=== PATIENT | male | born 1945 | race Caucasian/White ===

== ENCOUNTER 2019-02-01 06:22 | Inpatient (IN) ==
[2019-02-01] MEDS ORDERED: CeFAZolin Syr 2,000MG/20 ML 2,000 MG/20 ML SYRINGE IVPB ONE (06:40)
[2019-02-01] MEDS ORDERED: Ringers Solution, Lactated 1,000 ML IVC SCH ×2 (06:45→11:14)
--- NOTE | 2019-02-01 06:48 | History & Physical Report ---
Date of Encounter: 02/01/19 Time of Encounter: 06:48 24 Hour HP Update - Instructions Instructions: If the History and Physical is less than 30 days old and was completed prior to A.M. admission and or procedure and has NOT been updated on calendar day of procedure please complete this update prior to performing procedure. - Update Patient reports changes in Medical Condition: No Changes in examination, assessment, or condition: No Changes in Medication: No Preop tests/diagnostics Reviewed: Yes Surgery Remains Indicated: Yes Consent for Planned Operative Procedure(s) Verified: Yes - Pre-Operative Checklist Preoperative Checklist Indicated: No Prophylactic Antibiotic Ordered: Yes Is VTE Prophylaxis Indicated?: Yes
[2019-02-01] MEDS ORDERED: Ethanol\\Acetic Acid\\Na Ace\\Ben 1,000 ML IRRIG.SOLN IR ONE (07:23)
[2019-02-01] MEDS ORDERED: *HR* Midazolam HCl 2 MG/2 ML VIAL ONE (07:37)
[2019-02-01] MEDS ORDERED: *HR* Propofol 200 MG/20 ML VIAL IVP ONE (07:37)
[2019-02-01] MEDS ORDERED: *HR* FentaNYL (PF) 100 MCG/2 ML VIAL ONE (07:37)
[2019-02-01] MEDS ORDERED: Lidocaine -MPF 2% 2 ML VIAL ONE (07:39)
[2019-02-01] MEDS ORDERED: Ropivacaine/PF 0.5% 30 ML VIAL ONE (07:44)
[2019-02-01] MEDS ORDERED: Acetaminophen IV 1,000 MG/100 ML INFUS..BTL ONE (07:44)
--- NOTE | 2019-02-01 08:09 | Anesthesia Evaluation PreOp ---
Date of Encounter: 02/01/19 Time of Encounter: 08:07 - Past History Planned Operation: Right Total Shoulder Cardiac History: HTN, Hyperlipidemia Pulmonary History: Former smoker (quit 2006), Snore, FUENTES Dx (does not use CPAP) WOUND CARE SPECIALIST History: TIA Other Medical History: Diabetes Type II, GERD Anesthesia History: No Prior Anesthetic Complications, Past Anesthesia Alcohol Use: occasionally Drug use: none Medications and Allergies Ascorbic Acid [Vitamin C] 500 mg PO DAILY 02/01/19 [History] Aspirin Enteric Coated [Aspirin EC] 81 mg PO DAILY 02/01/19 [History] Cetirizine HCl [Zyrtec] 10 mg PO DAILY 02/01/19 [History] Ergocalciferol (VITAMIN D2) [Vitamin D2] 2,000 unit PO DAILY 02/01/19 [History] Losartan Potassium 25 mg PO DAILY 02/01/19 [History] Naproxen [Naprosyn] 500 mg PO BID PRN 02/01/19 [History] Omeprazole [PriLOSEC] 20 mg PO DAILY 02/01/19 [History] Pravastatin Sodium [Pravachol] 20 mg PO HS 02/01/19 [History] Pregabalin [Lyrica] 75 mg PO BID 02/01/19 [History] Allergy/AdvReac Type Severity Reaction Status Date / Time No Known Allergies Allergy Verified 02/01/19 07:15 - Meds/Allergy Pre-op Review Medications Reviewed: Yes Allergies Reviewed: Yes Beta Blockers on Current Med List: No Anesthesia Results - Labs Laboratory Tests 01/27/19 01/27/19 01/27/19 14:20 14:20 14:20 WBC 9.3 Hgb 15.5 Hct 48.9 Plt Count 297 PT 11.1 INR 1.0 APTT 32.5 Sodium 139 Potassium 4.0 BUN 20 Creatinine 1.20 - Imaging EKG: report reviewed (12/30/2017 SINUS RHYTHM RIGHT BUNDLE BRANCH BLOCK) Additional studies: 01/17/2016 Echo Impressions: LVEF 60%. Normal left ventricular size and systolic function. There is evidence of moderate diastolic dysfunction of the left ventricle. Dilated RV with normal function. No significant valvular dysfunction. Estimated RVSP was 24 mmHg. No pulmonary hypertension. The IVC is not dilated. Anesthesia Exam O2 Sat Height 1.77 m Height 1.77 m Weight 120.202 kg Weight 120.202 kg O2 Sat by Pulse Oximetry 95 Vital Signs Temp Pulse Resp BP Pulse Ox 97.8 F 79 18 130/90 95 02/01/19 07:11 02/01/19 07:11 02/01/19 07:11 02/01/19 07:11 02/01/19 07:11 Blood Glucose* 99 Height: 5'3'' Weight: 214 lbs NPO (# of Hours): 8 Pain Scale: 0 Pain Scale Used: Numeric (1 - 10) - HEENT Pupil (Motor): EOMI Mallampati: III Teeth: Normal, Missing Oral Opening: Greater than 3 - WOUND CARE SPECIALIST LOC: Oriented WOUND CARE SPECIALIST Motor: Normal RUE, Normal LUE, Normal RLE, Normal LLE, Normal Face WOUND CARE SPECIALIST Sensory: Normal: RUE, LUE, RLE, LLE, Face - Cardiac Rhythm: Regular Murmur: None - Pulmonary Breath Sounds: bilateral Clear Respiratory Effort: Symmetrical Anesthesia Assess/Plan ASA Score: 3 Level of consciousness: Cooperative, Oriented, Tranquil Anesthetic Plan: General, Regional Nerve Block Regional Nerve Block Plan: Supraclavicular Monitoring Plan: Standard Monitors Recovery Plan: PACU
[2019-02-01] MEDS ORDERED: *HR* HYDROmorphone (PF) 1 MG/ML SYRINGE IVP PRN (08:21)
[2019-02-01] MEDS ORDERED: Ondansetron 4 MG/2 ML VIAL IVP ONE (08:21)
[2019-02-01] MEDS ORDERED: *HR* OxyCODONE Immed Rel 5 MG TABLET PO PRN ×2 (08:21→11:14)
--- NOTE | 2019-02-01 09:00 | Anesthesia Procedures ---
Date of Encounter: 02/01/19 Time of Encounter: 08:59 Procedures: Anesthesia - Nerve Block Procedure Date: 02/01/19 Time: 08:59 Allergies/Adv Reactions: nka Pre-op Diagnosis: right shoulder rc arthropathy Surgical Procedure: right TSA rev Checklist: Correct Patient Identifier, Correct procedure, History checked Correct side: Right Blood Thinner: No Monitor Applied: EKG, BP, Pulse Oximetry Supplemental Oxygen via Nasal Cannula (L/min): 2 Sedation: Versed (mg): 2 Sedation: Fentanyl (mcg): 100 Indication: Post Op Analgesia Pre-op Neuro Deficits: No Block Type: Supraclavicular Catheter placed: No Sterile Technique: Yes Ultrasound used: Yes Anatomy identified: Yes Visual spread of Local: Yes Neuro Stimulation: No Blood on Needle Aspiration: No Smooth Injection of Local: Yes Pain with Injection of Local: No Prep: Chlorhexadine Needle: 22 x 50 mm Stimuplex (echo) Local: Ropivacaine (0.5%), Other (8mg decadron) Volume (cc): 30 Number of Attempts: 1 Complications: None/effective block Vitals: Vital Signs/O2 Sat/Glucose, Most Recent Temp Pulse Resp BP Pulse Ox 97.8 F 81 18 139/89 93 02/01/19 07:11 02/01/19 08:55 02/01/19 07:11 02/01/19 08:55 02/01/19 08:55 Blood Glucose* 99
[2019-02-01] MEDS ORDERED: Ondansetron 4 MG/2 ML VIAL ONE (09:13)
[2019-02-01] MEDS ORDERED: Dexamethasone 4 MG/ML VIAL ONE (09:13)
--- NOTE | 2019-02-01 09:57 | Orthopedic Operative Note ---
Date of procedure: 02/01/19 Pre-op diagnosis: Right shoulder cuff tear arthropathy Post-op diagnosis: same Procedure: Procedure: Total Shoulder Replacment Reverse, right Estimated blood loss: 100 cc Hardware: Metal and polyethylene replacement: Arthrex 28, +4 , 30 mm post glenoid baseplate, 4 locking 5.5 screw, 42+4 glenosphere,10 Willits humeral stem, poly insert 6 Exam Under anesthesia: Full motion no instability Procedural Notes: Grade 4 arthritic changes humeral head glenoid socket, rotator cuff tear Operative procedure: The patient was brought to the operating room and placed on the operating room table. After general anesthesia was administered the operative shoulder was examined. Findings were noted. The patient was placed in the modified beachchair position. All pressure points were padded appropriately. And the head was stabilized in the neutral position. The operative extremity was prepped and draped in the sterile surgical fashion. The patient received IV antibiotics prior to skin incision. A standard deltopectoral approach was made to the operative shoulder. Incision was made to the skin and subcutaneous tissue,hemo stasis was obtained with Bovie cautery. Using careful blunt dissection the cephalic vein was identified and mobilized medially. The deltopectoral interval was developed and the clavipectoral fascia was incised. The subscap was released off the lesser tuberosity and tagged with #2 FiberWire suture subscap was irreparable. The humerus was dislocated patient noted to have tear supraspinatus tendon, and the humeral cut was made along the anatomic neck. Patient noted to have grade 4 arthritic changes humeral head glenoid socket. Anterior and posterior Bankart retractors were placed to expose the glenoid. The glenoid guide was seated and the centering hole was made. It was reamed with the appropriate reamer. The baseplate was seated and secured with 4 locking 5.5 screw. The baseplate was irrigated and dried and the Glenosphere was seated and secured with the Cortes taper. The Cortes taper was tested and found to be secure, glenosphere fixation was secondarily secured with the central screw. The humerus was redislocated and prepared with the diaphyseal reamers, followed by a broaching process up to the appropriate size Willits stem in the patient's anatomic version. The metaphyseal reamer was then utilized. Trial reduction found the shoulder to be relocatable. Trial components were removed and the Willits stem was impacted in place in the patient's anatomic version. Trial reduction found the shoulder to be relocatable and stable with the appropriate poly. Trial component was removed and the real implant was seated and secured the shoulder was reduced. The shoulder had excellent motion and excellent stability and no evidence of dislocation. The deep tissue was irrigated with pulse irrigation. The PA close the shoulder. The deltopectoral interval was closed with a running #1 PDS suture, subcutaneous tissue was irrigated and closed with 0 PDS suture, the skin was closed with Dermabond. The patient was placed in a sterile dressing, abduction brace and extubated. The patient was then transferred to the recovery room in stable condition. Anesthesia: GETA Surgeon: Robb Romeo Was there an preschool assistant principal present: Yes Morning Nanny: Wagner Hauser Estimated blood loss (cc): 100 Condition: stable Disposition: PACU
--- NOTE | 2019-02-01 10:38 | Anesthesia Evaluation Post Op ---
Date of Encounter: 02/01/19 Time of Encounter: 10:38 - Vital Signs Vital Signs: Selected Entries 02/01/19 10:08 02/01/19 10:28 Temperature 98.3 F Pulse Rate 70 Respiratory Rate 14 Blood Pressure 135/85 O2 Sat by Pulse Oximetry 97 - Lungs Lungs: Clear Ascult./Percussion - Airway Airway: Non-obstructed - Cardiovascular Regular Rate - Mental Status Mental Status: Alert & Oriented, Answers Appropriately - Pain Pain Scale: 0 Pain Scale used: Numeric (1 - 10) - Nausea Vomiting Nausea Vomiting: Not Present - Hydration Hydration: Tolerates oral liquids, Has not voided - Discharge PostOp Status: Transfer Patient to floor
[2019-02-01 10:47] LABS: Hematocrit 44.8 % (37.5-50.1); Hemoglobin 14.1 g/dL (12.9-16.9)
[2019-02-01] MEDS ORDERED: Temazepam 15 MG CAPSULE PO PRN (11:14)
[2019-02-01] MEDS ORDERED: Aspirin Enteric Coated 81 MG Tablet PO SCH (11:14)
[2019-02-01] MEDS ORDERED: *HR* OxyCODONE/APAP 5/325 TABLET PO PRN (11:14)
[2019-02-01] MEDS ORDERED: Cholecalciferol (D-3) 1,000 UNIT (25MCG) TABLET PO SCH (11:14)
[2019-02-01] MEDS ORDERED: Ascorbic Acid 500 MG TABLET PO SCH (11:14)
[2019-02-01] MEDS ORDERED: Naloxone 0.4 MG/ML INJ IVP PRN (11:14)
[2019-02-01] MEDS ORDERED: traMADol 50 MG TABLET PO PRN (11:14)
[2019-02-01] MEDS ORDERED: MOM Conc 10 ML UD.LIQ PO PRN (11:14)
[2019-02-01] MEDS ORDERED: Ondansetron 4 MG/2 ML VIAL IVP PRN (11:14)
[2019-02-01] MEDS ORDERED: Loratadine 10 MG TABLET PO SCH (11:14)
[2019-02-01] MEDS ORDERED: Pregabalin 75 MG CAPSULE PO SCH (11:14)
[2019-02-01] MEDS ORDERED: Sennosides 8.6 MG TABLET PO PRN (11:14)
--- NOTE | 2019-02-01 15:45 | Discharge Summary ---
Orders not resulted at time of discharge: Pending orders 02/01/19 09:35 Surgical Pathology [PTH] Routine Date of Encounter: 02/01/19 Time of Encounter: 16:24 - Discharge Diagnosis (1) Rotator cuff tear arthropathy of right shoulder Priority: Primary Status: Chronic (2) HTN (hypertension) Priority: Secondary Status: Chronic Qualifiers: Hypertension type: unspecified Qualified Code(s): I10 - Essential (primary) hypertension (3) FUENTES (obstructive sleep apnea) Priority: Secondary Status: Chronic (4) GERD (gastroesophageal reflux disease) Priority: Secondary Status: Chronic Qualifiers: Esophagitis presence: esophagitis presence not specified Qualified Code(s): K21.9 - Gastro-esophageal reflux disease without esophagitis (5) HLD (hyperlipidemia) Priority: Secondary Status: Chronic Qualifiers: Hyperlipidemia type: unspecified Qualified Code(s): E78.5 - Hyperlipidemia, unspecified (6) H/O: CVA (cerebrovascular accident) Priority: Secondary Status: Chronic - Hospital Course Hospital course: Mr. Grajeda is a 73 year old male s/p right total shoulder replacement reverse 02/01/19 Patient seen at bedside. Spouse at bedside. A&Ox3 Dressing and incision c/d/i Brace in place Motion to right fingers, altered, but intact sensation. No calf tenderness, erythema, or warmth. Neurovascularly intact b/l LE. Labwork, vitals, and medications reviewed. Pain control: Adequate Participating in therapy. All questions and concerns addressed. Educated on use of incentive spirometer, ambulation, and hydration. Patient educated on post-operative restrictions and care. Addressed: Patient not yet passed gas. The patient's postoperative course was uneventful. Progressed from intravenous analgesic needs to oral analgesic needs only. Remained neurovascularly intact and mobilized satisfactorily. All radiographic studies were satisfactory. Patient course and disposition discussed with Dr. Romeo. Patient is discharged to home with outpatient plan for rehabilitation and outpatient orthopedic follow up has been arranged. - Time Spent with Patient Total time spent providing and/or coordinating discharge services: - Discharge Medications Prescriptions: New Docusate Sodium [Colace] 100 mg PO BID 5 Days #10 capsule Acetaminophen [Non-Aspirin Extra Strength] 500 mg PO Q6H PRN 7 Days #28 tablet PRN Reason: Mild To Moderate Pain OxyCODONE Immed Rel [Roxicodone 5 MG] 5 mg PO Q6HR PRN 5 Days #20 tablet PRN Reason: Severe Pain Continued Ascorbic Acid [Vitamin C] 500 mg PO DAILY Aspirin Enteric Coated [Aspirin EC] 81 mg PO DAILY Cetirizine HCl [Zyrtec] 10 mg PO DAILY Ergocalciferol (VITAMIN D2) [Vitamin D2] 2,000 unit PO DAILY Losartan Potassium 25 mg PO DAILY Naproxen [Naprosyn] 500 mg PO BID PRN PRN Reason: Mild To Moderate Pain Omeprazole [PriLOSEC] 20 mg PO DAILY Pregabalin [Lyrica] 75 mg PO BID Atorvastatin [Lipitor] 20 mg PO HS Home Medications: Acetaminophen [Non-Aspirin Extra Strength] 500 mg PO Q6H PRN 7 Days #28 tablet 02/01/19 [Rx] Ascorbic Acid [Vitamin C] 500 mg PO DAILY 02/01/19 [History] Aspirin Enteric Coated [Aspirin EC] 81 mg PO DAILY 02/01/19 [History] Atorvastatin [Lipitor] 20 mg PO HS 02/01/19 [History] Cetirizine HCl [Zyrtec] 10 mg PO DAILY 02/01/19 [History] Docusate Sodium [Colace] 100 mg PO BID 5 Days #10 capsule 02/01/19 [Rx] Ergocalciferol (VITAMIN D2) [Vitamin D2] 2,000 unit PO DAILY 02/01/19 [History] Losartan Potassium 25 mg PO DAILY 02/01/19 [History] Naproxen [Naprosyn] 500 mg PO BID PRN 02/01/19 [History] Omeprazole [PriLOSEC] 20 mg PO DAILY 02/01/19 [History] OxyCODONE Immed Rel [Roxicodone 5 MG] 5 mg PO Q6HR PRN 5 Days #20 tablet 02/01/19 [Rx] Pregabalin [Lyrica] 75 mg PO BID 02/01/19 [History] Allergies/Adverse Reactions: Allergy/AdvReac Type Severity Reaction Status Date / Time No Known Allergies Allergy Verified 02/01/19 07:15 Date of admission: 02/01/19 11:30 [facility] care physician: [facility] Consults: 02/01/19 11:14 Consult to Occupational Therapy [CONS] Routine Comment: post shoulder surgery Reason for Consult: post shoulder surgery Does patient have active BEDREST order?: No Is patient medically & hemodynamically stable?: Yes Consult to Physical Therapy [CONS] Routine Comment: post shoulder surgery Reason for Consult: post shoulder surgery Does patient have active BEDREST order?: No Is patient medically & hemodynamically stable?: Yes Consult to Plywood Factory Worker [CONS] Routine Reason for SW Consult: shoulder surgery RT Post Op Consult [CONS] Routine Discharging clinician: Robb Romeo Anticipated date of discharge: 02/01/19 - VTE Documentation of Mechanical Device: Venous foot pump, device Labs on day of discharge: Labs from last 24 hours 02/01/19 02/01/19 10:31 06:49 Hgb 14.1 Hct 44.8 POC Glucose 99 - Impressions ITS Impressions Shoulder X-Ray 02/01/19 10:55 IMPRESSION: Uncomplicated reverse right total shoulder arthroplasty. D/ / 02/01/2019 11:01:46 Raudel Molina MD / [email or web address] Interpreting Provider: Raudel Molina MD - Patient Status Disposition: Home, Self-Care Condition: Good Functional capacity at discharge: independent ambulation Overall status at discharge: patient is progressing back to baseline - Discharge Instructions Follow Up With: [facility] [Primary Care Provider] - - Diet and Activity Activity: as per physical therapy Diet: advance to your usual diet
[2019-02-01] MEDS ORDERED: ceFAZolin sodium 3,000 MG in 0.9 % Sodium Chloride 100 ML IVPB SCH (16:00)
[2019-02-01 17:30] VITALS: BP 120/72
[2019-02-01] MEDS ORDERED: *HR* Enoxaparin 30 MG/0.3 ML SYRINGE SQ SCH ×2 (18:00)
== END 2019-02-01 17:28 | disposition home or self-care (01) | DRG 483 ==
LOC: SAMDAY 06:22 → 3NENU 11:30
PROVIDERS: ADMIT Orthopaedic Surgery; ATTEND Orthopaedic Surgery